=== PATIENT | female | born 1970 | race Caucasian/White ===

== ENCOUNTER 2024-12-19 11:16 | Emergency (ER) | payer MEDICAID, SELFPAY ==
[2024-12-19 11:36] VITALS: BP 157/119; PULSE 92; RESP 20; TEMP 36.7; O2SAT 98
[2024-12-19 11:42] VITALS: BP 157/119; PULSE 92; RESP 20; TEMP 36.7; O2SAT 98
[2024-12-19 12:41] LABS: Abs Immature Grans 0.02 10^3/uL (0.0-0.06); Absolute Basophil Count 0.08 10^3/uL (0.0-0.2); Absolute Eosinophil Count 0.26 10^3/uL (0.0-0.7); Absolute Lymphocyte Count 1.85 10^3/uL (1.2-3.4); Absolute Monocyte Count 0.42 10^3/uL (0.1-0.8); Basophils % 0.8 %; Eosinophils % 2.7 %; HCT 49.2 % (36.0-46.0); HGB 16.4 g/dL (11.2-15.7); Immature Grans % 0.2 %; Lymphocytes % 19.2 %; MCH 33.3 pg (27.0-33.0); MCHC 33.3 % (32.0-36.0); MCV 100 fL (80-95); MPV 8.7 fL (8.0-11.0); Monocytes % 4.4 %; Neutrophils % 72.7 %; Platelet Count 400 10^3/uL (130-400); RBC 4.93 10^6/uL (3.93-5.22); RDW 12.9 % (11.7-14.6); RDW-SD 47.8 fL; WBC 9.63 10^3/uL (4.4-10.8)
[2024-12-19 13:10] LABS: ALT 18 U/L (14-59); AST 27 U/L (15-37); Albumin 4.2 g/dL (3.4-5.0); Alkaline Phosphatase 94 U/L (46-116); Anion Gap 7.2 mmol/L (3-11); BUN 13 mg/dL (7-18); Bilirubin, Total 0.3 mg/dL (0.2-1.0); CO2 31.8 mmol/L (21.0-32.0); Calcium 9.7 mg/dL (8.5-10.1); Chloride 104 mmol/L (98-107); Estimated GFR 66.53 (mL/min/1.73m2); Glucose 92 mg/dL (74-106); Potassium 3.7 mmol/L (3.5-5.1); Sodium 143 mmol/L (136-145); Total Protein 8.4 g/dL (6.4-8.2)
[2024-12-19 13:45] LABS: TSH (W/Ref FT4) 276.77 uIU/mL (0.36-3.74)
[2024-12-19 14:19] VITALS: BP 190/127; PULSE 88; RESP 20; O2SAT 97
[2024-12-19 14:20] VITALS: BP 190/127; PULSE 88; RESP 15; RESP 20; O2SAT 97
--- NOTE | 2024-12-19 17:10 | NUR.NOTE ---
Nursing Note: Received call from patient that her prescription was written for capsules and capsules are not available or approved by her insurance- she usually takes the tablets. called [facility] in [place], [place] and spoke to Pharmacist Simin who will switch them to tablets and get it filled today for the patient
[2024-12-19 22:08] LABS: T4, Free 0.1 ng/dL (0.8-2.2)
--- NOTE | 2024-12-21 15:20 | ED.GENADUL_ITS ---
Discharge Plan Disposition Patient Disposition: Home Condition: Stable Discharge Details Clinical Impression: Hypothyroidism Primary Care Provider: Unknown,Unknown ED Provider: Shalonda Germain Home Meds and New Rx's Prescriptions: New levothyroxine 112 mcg capsule 112 mcg PO DAILY Qty: 60 0RF losartan 25 mg tablet 25 mg PO DAILY Qty: 60 0RF Continued levothyroxine 112 mcg capsule 112 mcg PO DAILY cyclobenzaprine 10 mg tablet 10 mg PO TID losartan 25 mg tablet 25 mg PO DAILY Discharge Instructions Instructions: Hypothyroidism (underactive thyroid) Additional Instructions: Start taking your levothyroxine today and resume your losartan I placed an urgent referral for follow-up with a doctor These return immediately should you have new or worsening complaints Discharge Data Discharge Date/Time-TO BE ENTERED AT DEPARTURE: 12/19/24 14:20 HPI General Date/Time Provider Initiated Documentation: 12/19/24 11:26 . HPI Narrative: The patient is a 54-year-old female with a history of hypertension and hypothyroidism who recently relocated to the area. She presents with concerns that her thyroid function may be abnormal. She reports experiencing fatigue and a sensation of filling up a stand, symptoms she has previously associated with thyroid dysfunction. She contacted her previous physician in [place], but they declined to refill her Synthroid prescription, leaving her without the medication for approximately a month. She also mentions that she has not been taking her losartan. She does not experience any chest pain, shortness of breath, or dizziness. Related Data Home Medications ?Medication ?Instructions ?Recorded ?Confirmed cyclobenzaprine 10 mg tablet 10 mg PO TID 12/19/24 12/19/24 levothyroxine 112 mcg capsule 112 mcg PO DAILY 12/19/24 12/19/24 levothyroxine 112 mcg capsule 112 mcg PO DAILY #60 caps 12/19/24 losartan 25 mg tablet 25 mg PO DAILY 12/19/24 12/19/24 losartan 25 mg tablet 25 mg PO DAILY #60 tabs 12/19/24 Previous Rx's ?Medication ?Instructions ?Recorded levothyroxine 112 mcg capsule 112 mcg PO DAILY #60 caps 12/19/24 losartan 25 mg tablet 25 mg PO DAILY #60 tabs 12/19/24 Allergies Allergy/AdvReac Type Severity Reaction Status Date / Time Penicillins Allergy Intermediate Hives Verified 12/19/24 11:40 General Stated Complaint: GenMedical JACKSON: 4 Exam Narrative Exam Narrative: General Appearance: Patient is alert and oriented, not in acute distress. Vital signs: Blood pressure is markedly elevated at 157/119. HEENT: Pupils are equal, round, and reactive to light and accommodation. No thyromegaly. Respiratory: Lungs are clear to auscultation. Cardiovascular: Cardiac rate and rhythm are regular. No sinus tachycardia. Back, Musculoskeletal: Patient is ambulatory with a steady gait. Skin: Warm and dry, no rash. Neurological: Normal. Course Vital Signs Vital signs: Vital Signs Temperature 36.7 C 12/19/24 11:36 Pulse 92 H 12/19/24 11:36 Respiratory Rate 20 12/19/24 11:36 Blood Pressure 157/119 H 12/19/24 11:36 Pulse Oximetry 98 12/19/24 11:36 Temperature 36.7 C 12/19/24 11:42 Pulse 88 12/19/24 14:20 Respiratory Rate 15 12/19/24 14:20 Blood Pressure 190/127 H 12/19/24 14:20 Blood Pressure Position Sitting 12/19/24 11:42 Pulse Oximetry 97 12/19/24 14:20 Oxygen Delivery Method Room Air 12/19/24 14:19 Oxygen Flow Rate 0 12/19/24 14:19 Lab/Test Results Lab/Test Results: Laboratory Tests Range/Units 12/19/24 12:34 WBC (4.4-10.8) 10^3/uL 9.63 RBC (3.93-5.22) 10^6/uL 4.93 Hgb (11.2-15.7) g/dL 16.4 H Hct (36.0-46.0) % 49.2 H MCV (80-95) fL 100 H MCH (27.0-33.0) pg 33.3 H MCHC (32.0-36.0) % 33.3 RDW (11.7-14.6) % 12.9 Plt Count (130-400) 10^3/uL 400 MPV (8.0-11.0) fL 8.7 Immature Gran % % 0.2 Neutrophils % % 72.7 Lymphocytes % % 19.2 Monocytes % % 4.4 Eosinophils % % 2.7 Basophils % % 0.8 Nucleated RBC % (0.0-0.3) % 0.0 Absolute Neutrophils (1.2-6.7) 10^3/uL 7.00 H Absolute Lymphocytes (1.2-3.4) 10^3/uL 1.85 Absolute Monocytes (0.1-0.8) 10^3/uL 0.42 Absolute Eosinophils (0.0-0.7) 10^3/uL 0.26 Absolute Basophils (0.0-0.2) 10^3/uL 0.08 Sodium (136-145) mmol/L 143 Potassium (3.5-5.1) mmol/L 3.7 Chloride (98-107) mmol/L 104 Carbon Dioxide (21.0-32.0) mmol/L 31.8 Anion Gap (3-11) mmol/L 7.2 BUN (7-18) mg/dL 13 Creatinine (0.55-1.02) mg/dL 1.0 Est GFR (CKD-EPI 2020) (mL/min/1.73m2) 66.53 Glucose (74-106) mg/dL 92 Calcium (8.5-10.1) mg/dL 9.7 Total Bilirubin (0.2-1.0) mg/dL 0.3 AST (15-37) U/L 27 ALT (14-59) U/L 18 Alkaline Phosphatase (46-116) U/L 94 Total Protein (6.4-8.2) g/dL 8.4 H Albumin (3.4-5.0) g/dL 4.2 TSH (0.36-3.74) uIU/mL 276.77 H Free T4 (0.8-2.2) ng/dL 0.1 L Medical Decision Making Laboratory Studies Thyroid level is 276. Free T4 is pending. Initial Assessment: 54-year-old female with history of hypertension and hypothyroidism presents with symptoms suggestive of thyroid dysfunction and elevated blood pressure. Differential Diagnosis: - Hypothyroidism: Reports feeling tired and filling up a stand, similar to previous episodes when her thyroid was off. Thyroid level at 276, free T4 pending. Off Synthroid for approximately a month. Initiated on Synthroid 112 mcg. - Hypertension: Blood pressure markedly elevated at 157/119. Off losartan. Losartan refilled. ED Course: - Thyroid level at 276. - Free T4 pending. - Blood pressure 157/119. - Initiated on Synthroid 112 mcg. - Losartan refilled. - Placed on list for urgent follow-up to establish primary care. Final Assessment: Patient with hypothyroidism and hypertension, both conditions exacerbated by lack of medication. Initiated on Synthroid and losartan, with urgent follow-up arranged. Clinical Impression: - Hypothyroidism - Hypertension Disposition: - Discharge: Patient discharged home in no acute distress. - Follow-Up: Urgent follow-up to establish primary care in the area. MDM Components Evaluation: - Number of Differential Diagnoses or Management Options: Hypothyroidism, Hypertension - Amount and Complexity of Data Reviewed: Thyroid level, blood pressure, medication history - Risk of Complication and Morbidity or Mortality: Elevated due to lack of medication for chronic conditions Quality:SDOH Health Related Social Needs: No Data to Display PFSH All Active Problems (Updated 12/19/24 @ 14:04 by JACLYN Flores) Hypothyroidism (Chronic) Social History Smoking risk assessment performed?: No Drug use: Socially Substance use type: marijuana
== END 2024-12-19 14:20 | disposition home or self-care (01) ==
PROVIDERS: Emergency Provider Physician Assistant
DX: E03.9 Hypothyroidism, unspecified (principal); I10 Essential (primary) hypertension; T38.1X6A Underdosing of thyroid hormones and substitutes, initial encounter; T46.5X6A Underdosing of other antihypertensive drugs, initial encounter; Z91.148 Patient's other noncompliance with medication regimen for other reason
CPT/HCPCS: 80053; 99283; 84439; 84443; 85025

== ENCOUNTER 2025-02-09 03:56 | Outpatient (CLI) | payer MEDICAID, SELFPAY ==
[2025-02-09 10:54] LABS: Anion Gap 7.5 mmol/L (3-11); BUN 13 mg/dL (7-18); CO2 31.5 mmol/L (21.0-32.0); CREATININE 0.8 mg/dL (0.55-1.02); Calcium 9.7 mg/dL (8.5-10.1); Chloride 106 mmol/L (98-107); Estimated GFR 86.96 (mL/min/1.73m2); Glucose 94 mg/dL (74-106); Sodium 145 mmol/L (136-145); TSH (W/Ref FT4) 0.29 uIU/mL (0.36-3.74)
[2025-02-09 11:10] LABS: FREE T4 1.35 ng/dL (0.76-1.46)
== END 2025-02-09 03:57 | disposition home or self-care (01) ==
LOC: LBO 03:57
PROVIDERS: Referring Provider Nurse Practitioner Family; Visit Provider Nurse Practitioner Family
DX: E03.9 Hypothyroidism, unspecified (principal); I10 Essential (primary) hypertension
CPT/HCPCS: 36415; 80048; 84439; 84443

== ENCOUNTER 2025-02-17 11:23 | Outpatient (REF) | payer MEDICAID, SELFPAY ==
[2025-02-17 18:37] LABS: COMMENT (LAB VIEW ONLY) 24.16 mg/dL; Microalb ug/mg Crea 49.3 ug/mg Cr
== END 2025-02-17 11:24 | disposition home or self-care (01) ==
LOC: LBN 11:23
PROVIDERS: Visit Provider Nurse Practitioner Family
DX: I10 Essential (primary) hypertension (principal)
CPT/HCPCS: 82043; 82570

== ENCOUNTER 2025-04-10 02:13 | Outpatient (CLI) | payer MEDICAID, SELFPAY ==
[2025-04-10 15:57] LABS: TSH (W/Ref FT4) 2.96 uIU/mL (0.36-3.74)
== END 2025-04-10 02:14 | disposition home or self-care (01) ==
LOC: LBO 02:13
PROVIDERS: PCP Nurse Practitioner Family; Referring Provider Nurse Practitioner Family; Visit Provider Nurse Practitioner Family
DX: E03.9 Hypothyroidism, unspecified (principal)
CPT/HCPCS: 36415; 84443

== ENCOUNTER 2025-09-27 07:26 | Observation (INO) | payer MEDICAID, SELFPAY ==
[2025-09-27] VITALS (72 sets, daily range): BP systolic 104–151; BP diastolic 63–100; PULSE 66–95; RESP 12–28; TEMP 36–37; O2SAT 88–97; BMI 29.7
[2025-09-27 07:51] LABS: Abs Immature Grans 0.07 10^3/uL (0.0-0.06); HCT 40.1 % (36.0-46.0); HGB 13.5 g/dL (11.2-15.7); Immature Grans % 0.5 %; MCH 34.1 pg (27.0-33.0); MCHC 33.7 % (32.0-36.0); MCV 101 fL (80-95); MPV 9.3 fL (8.0-11.0); Platelet Count 318 10^3/uL (130-400); RBC 3.96 10^6/uL (3.93-5.22); RDW 12.4 % (11.7-14.6); RDW-SD 46.6 fL; WBC 14.73 10^3/uL (4.4-10.8)
[2025-09-27 08:17] LABS: Lipase 38 U/L (<53); Magnesium 1.6 mg/dL (1.6-2.6)
[2025-09-27 08:19] LABS: ALT 31 U/L (10-49); AST 73 U/L (<34); Albumin 4.3 g/dL (3.2-5.0); Alkaline Phosphatase 94 U/L (46-116); Anion Gap 8.3 mmol/L (3-11); BUN 11 mg/dL (9-23); Bilirubin, Total 0.4 mg/dL (0.2-1.2); CO2 27.7 mmol/L (20.0-31.0); Calcium 9.4 mg/dL (8.3-10.6); Chloride 105 mmol/L (98-107); Glucose 117 mg/dL (74-106); Potassium 3.9 mmol/L (3.5-5.1); Sodium 141 mmol/L (136-145); Total Protein 7.2 g/dL (5.7-8.2)
[2025-09-27] MEDS: HYDROmorphone 2 MG/ML SYR 1 MG IVP (08:21)
[2025-09-27 08:25] LABS: Troponin I < 3 ng/L (<35)
[2025-09-27 08:38] LABS: Glucose Negative (Negative)
[2025-09-27 08:50] LABS: C & S Indicated? No
--- NOTE | 2025-09-27 08:50 | ED.GENADUL_ITS ---
Discharge Plan Disposition Patient Disposition: Admit to [facility] Condition: Serious Discharge Details Clinical Impression: Acute cholecystitis Admit Date/Time: 09/27/25 10:48 Admit Provider: Rosmery Mathew Attending Provider: Rosmery Mathew Primary Care Provider: Agnes Dan ED Provider: Sanjeev Guzman Discharge Data Discharge Date/Time-TO BE ENTERED AT DEPARTURE: 09/27/25 15:10 HPI General Mode of arrival: ambulatory . Date/Time Provider Initiated Documentation: 09/27/25 07:43 . Limitations to Documentation: no limitations . Information obtained by: patient . HPI Narrative: 55-year-old female presents with abdominal pain. Pain localized to the right up per quadrant. Patient notes pain started around 2 AM and woke her up from sleep. Pain severe. She has had similar less severe brief episodes of pain in the area in the past. She has some associated nausea. No vomiting. No fever. Related Data Home Medications ?Medication ?Instructions ?Recorded ?Confirmed levothyroxine 100 mcg tablet 100 mcg PO DAILY #90 tabs 02/15/25 09/27/25 losartan 50 mg tablet 50 mg PO DAILY #90 tabs 07/0609/27/25 cyclobenzaprine 10 mg tablet 10 mg PO TID PRN muscle s pasm #30 05/03/25 09/27/25 tabs oxycodone-acetaminophen 5 mg-325 1 tab PO Q6H PRN #10 tabs 25 mg tablet (Percocet) Previous Rx's ?Medication ?Instructions ?Recorded levothyroxine 100 mcg tablet 100 mcg PO DAILY #90 tabs 02/15/25 losartan 50 mg tablet 50 mg PO DAILY #90 tabs 07/06 cyclobenzaprine 10 mg tablet 10 mg PO TID PRN muscle s pasm #30 05/03/25 tabs oxycodone-acetaminophen 5 mg-325 1 tab PO Q6H PRN #10 tabs 25 mg tablet (Percocet) Allergies Allergy/AdvReac Type Severity Reaction Status Date / Time Penicillins Allergy Intermediate Hives Verified 09/27/25 07:42 General Stated Complaint: Abd Prob JACKSON: 3 Exam Const General: cooperative and no acute distress HENMT Mouth: mucous membranes dry Eyes Conjunctivae: normal conjunctivae Sclera: normal sclerae Neck Neck: trachea midline and supple Resp Auscultation: clear to auscultation bilaterally, no rales, no rhonchi and no wheezes Cardio Rate: regular rate and not tachycardic Rhythm: regular rhythm Heart Sounds: no murmurs GI Palpation: soft, not firm, no guarding, no masses, not rigid and tender in the RUQ Skin General skin exam: no rashes or lesions noted Neuro General: patient alert, patient awake, patient oriented x3 and tone normal Extrem General: no edema Psych Appearance: grossly normal Mental Status: mental status grossly normal Speech and Movement: speech and movement normal Course Vital Signs Vital signs: Vital Signs Temperature 36 C L 09/27/25 07:32 Pulse 66 09/27/25 07:32 Respiratory Rate 17 09/27/25 07:32 Blood Pressure 115/81 09/27/25 07:32 Pulse Oximetry 95 09/27/25 07:32 Temperature 36 C L 09/27/25 07:38 Temperature Source Tympanic 09/27/25 07:38 Pulse 66 09/27/25 07:38 Respiratory Rate 17 09/27/25 07:38 Blood Pressure 115/81 09/27/25 07:38 Blood Pressure Position Supine 09/27/25 07:38 Pulse Oximetry 95 09/27/25 07:38 Oxygen Delivery Method Room Air 09/27/25 07:38 Oxygen Flow Rate 0 09/27/25 07:38 Lab/Test Results Lab/Test Results: Laboratory Tests Range/Units 09/27/25 09/27/25 07:32 08:30 WBC (4.4-10.8) 10^3/uL 14.73 H RBC (3.93-5.22) 10^6/uL 3.96 Hgb (11.2-15.7) g/dL 13.5 Hct (36.0-46.0) % 40.1 MCV (80-95) fL 101 H MCH (27.0-33.0) pg 34.1 H MCHC (32.0-36.0) % 33.7 RDW (11.7-14.6) % 12.4 Plt Count (130-400) 10^3/uL 318 MPV (8.0-11.0) fL 9.3 Immature Gran % % 0.5 Neutrophils % % 78.9 Lymphocytes % % 13.2 Monocytes % % 6.1 Eosinophils % % 0.8 Basophils % % 0.5 Nucleated RBC % (0.0-0.3) % 0.0 Absolute Neutrophils (1.2-6.7) 10^3/uL 11.62 H Absolute Lymphocytes (1.2-3.4) 10^3/uL 1.94 Absolute Monocytes (0.1-0.8) 10^3/uL 0.90 H Absolute Eosinophils (0.0-0.7) 10^3/uL 0.12 Absolute Basophils (0.0-0.2) 10^3/uL 0.07 Sodium (136-145) mmol/L 141 Potassium (3.5-5.1) mmol/L 3.9 Chloride (98-107) mmol/L 105 Carbon Dioxide (20.0-31.0) mmol/L 27.7 Anion Gap (3-11) mmol/L 8.3 BUN (9-23) mg/dL 11 Creatinine (0.55-1.02) mg/dL 0.97 Est GFR (CKD-EPI 2020) (mL/min/1.73m2) 59.36 Glucose (74-106) mg/dL 117 H Calcium (8.3-10.6) mg/dL 9.4 Magnesium (1.6-2.6) mg/dL 1.6 Total Bilirubin (0.2-1.2) mg/dL 0.4 AST (<34) U/L 73 H ALT (10-49) U/L 31 Alkaline Phosphatase (46-116) U/L 94 Troponin I (<35) ng/L < 3 Total Protein (5.7-8.2) g/dL 7.2 Albumin (3.2-5.0) g/dL 4.3 Lipase (<53) U/L 38 Urine Color (Yellow) Yellow Urine Clarity (Clear) Sl Cloudy Urine pH (5-8) 5.0 Ur Specific [place] (1.005-1.025) >= 1.030 H Urine Protein (Neg-Trace) mg/dL Trace Urine Ketones (Negative) mg/dL Negative Urine Blood (Negative) Moderate H Urine Nitrite (Negative) Negative Urine Bilirubin (Negative) Small H Urine Urobilinogen (Up to 0.2) mg/dL 2.0 H Ur Leukocyte Esterase (Negative) Negative Urine Glucose (Negative) mg/dL Negative Medical Decision Making 900--55-year-old female here with severe right upper quadrant pain that started around 2 AM and has persisted. Patient tender in her right upper quadrant. Hemodynamically stable and afebrile. High concern for acute cholecystitis. POCUS performed and cholelithiasis identified. Plan to obtain formal ultrasound. Diagnostic labs reviewed: Leukocytosis noted. Lipase normal. AST elevated at 73. I consulted Dr. Mathew, on-call general surgeon, discussed ED presentation course. 1045 --I spoke with Dr. Mathew, she will admit the patient with plan for OR later today. She recommends ceftriaxone and Flagyl IV. Lab Data Lab results reviewed: Yes I reviewed the patient's lab results. PFSH All Active Problems (Updated 09/29/25 @ 00:02 by ARIANA EDGE) Vertigo (Acute) Hypertension (Chronic) Medical History (Updated 09/29/25 @ 00:02 by ARIANA EDGE) Hypothyroid Social History Smoking/Tobacco Use Status: Current-Occasional Tobacco Type: cigarettes Smoking risk assessment performed?: Yes Alcohol Intake: current Alcohol Intake frequency: holidays/special occasions only Alcohol type: hard liquor Drug use: Socially Substance use type: marijuana Housing: house POCUS Exam (ED) Limited Gallbladder Exam DATE OF EXAM: 09/27/25 TIME OF EXAM: 08:00 PROVIDER THAT PERFORMED THE STUDY: Sanjeev Guzman IS THIS A REPEAT EXAM DURING THIS ENCOUNTER: No REASON FOR VISIT: Abdominal pain VISUALIZED STRUCTURES: Gallbladder PERTINENT FINDINGS/IMPRESSION: Cholelithiasis DIFFERENTIAL DIAGNOSIS: Cholelithiasis, acute cholecystitis Exam complete
--- NOTE | 2025-09-27 09:09 | DI.US_ITS ---
Exam(s) US ABDOMEN LIMITED EXAM: US ABDOMEN LIMITED CLINICAL HISTORY: ruq pain TECHNIQUE: Ultrasound abdomen performed using standard protocol. COMPARISON: No exams were available for comparison FINDINGS: LIVER: Normal size and echogenicity. No focal liver lesions are seen. GALLBLADDER: The gallbladder appears distended and shows multiple stones as well as mild wall thickening. No pericholecystic fluid identified. ROJAS'S SIGN: Negative however the patient received pain medication. BILIARY SYSTEM: Common bile duct is mildly dilated at 7 millimeters. No common duct stones are visible. Right KIDNEY: The right kidney is normal in size. No evidence of renal calculi. No evidence of hydronephrosis. No renal mass or cyst identified. PANCREAS: Normal where visualized. ABDOMINAL AORTA AND IVC: Visualized portions normal caliber. ASCITES: None seen. IMPRESSION: Cholelithiasis. The gallbladder has a distended appearance and shows mild wall thickening, suspicious for early acute cholecystitis. Findings called to Dr. Guzman of the emergency department. DATA REPOSITORY:
[2025-09-27] MEDS: Lactated Ringers 1,000 ML 1000 ML IV (09:24)
--- NOTE | 2025-09-27 10:48 | W.PM.HP.N ---
Date of service: 09/27/25 Time of Service: 13:22 Assessment and Plan Assessment and plan (1) Acute cholecystitis: Status: Acute Assessment and plan: Patient is a 55-year-old female who presented to the emergency department with acute onset right upper quadrant pain, nausea, vomiting. She notes that the pain woke her from her sleep. She does endorse previous history of similar episodes that self subsided. She otherwise has a medical history of hypertension and a hysterectomy. On presentation the ED she was hemodynamically stable and afebrile. Her abdomen is soft, nondistended, and right upper quadrant tenderness to palpation. She had labs which were significant for an elevated white count. She also had a right upper quadrant ultrasound showing a thickened gallbladder wall with concern for early acute cholecystitis. The finding of acute cholecystitis was discussed with her in the emergency department. Given these findings the recommendation was made to undergo a cholecystectomy. The procedure as well as the recovery was discussed with her. The risks and benefits were discussed prior to the procedure and consent was obtained. Will admit following procedure for pain control postoperatively and advancement of diet. History of Present Illness Narrative: Patient is a 55-year-old female with past medical history of hypertension who presents to the emergency department with acute onset right upper quadrant pain. She reports experiencing excruciating right upper quadrant pain accompanied by nausea and vomiting which disrupted her sleep last night. She has had intermittent episodes of mild right upper quadrant pain over the past 4 to 5 months, but these were largely disregarded as they typically resolve spontaneously. She reports no associated fevers or chills. The pain has shown some improvement following medication administration in the emergency department. She does not take any blood thinners at home. She does not report any unusual dietary intake prior to the onset of symptoms. She last ate at 1030 yesterday evening. She notes that a similar episode of prior pain was after following coffee. She has a past medical history of hypothyroidism, vertigo, and muscle spasms. She is currently on antihypertensive medication. She has a prior laparoscopic hysterectomy . She has no prior history of complications with anesthesia. Review of Systems Constitutional Constitutional: Denies chills and Denies fever(s) Cardiovascular Cardiovascular: Denies chest pain and Denies dyspnea Respiratory Respiratory: Denies dyspnea Genitourinary Genitourinary: Denies dysuria PFSH All Active Problems (Updated 09/27/25 @ 10:50 by Sanjeev Guzman MD) Acute cholecystitis (Acute) Vertigo (Acute) Hypertension (Chronic) Medical History (Updated 09/27/25 @ 10:50 by Sanjeev Guzman MD) Hypothyroid Social History Smoking/Tobacco Use Status: Current-Occasional Tobacco Type: cigarettes Smoking risk assessment performed?: Yes Alcohol Intake: current Alcohol Intake frequency: holidays/special occasions only Alcohol type: hard liquor Drug use: Socially Substance use type: marijuana Meds Allergies and Home Medications Allergies Allergy/AdvReac Type Severity Reaction Status Date / Time Penicillins Allergy Intermediate Hives Verified 09/27/25 07:42 Home Medications ?Medication ?Instructions ?Recorded ?Confirmed ?Type levothyroxine 100 mcg tablet 100 mcg PO DAILY #90 tabs 02/15/25 09/27/25 Rx losartan 50 mg tablet 50 mg PO DAILY #90 tabs 04/19/25 09/27/25 Rx cyclobenzaprine 10 mg tablet 10 mg PO TID PRN muscle spasm #30 05/03/25 09/27/25 Rx tabs Exam Narrative Exam Narrative: General: no acute distress. Skin: Good turgor, no visible rashes or lesion HEENT: Normocephalic, atraumatic CV: Regular rate and rhythm Lungs: Bilateral equal chest rise, non-labored breathing Abdomen: Soft, right upper quadrant tenderness to palpation, non-distended, no rebound or guarding Extremities: Warm, well perfused Neurologic: No focal deficits Psychiatric: Alert and oriented, normal mood and affect Results Labs 09/27/25 07:32 09/27/25 07:32 Labs: Laboratory Results - last 24 hr 09/27/25 09/27/25 07:32 08:30 WBC 14.73 H RBC 3.96 Hgb 13.5 Hct 40.1 MCV 101 H MCH 34.1 H MCHC 33.7 RDW 12.4 Plt Count 318 MPV 9.3 Immature Gran % 0.5 Neutrophils % 78.9 Lymphocytes % 13.2 Monocytes % 6.1 Eosinophils % 0.8 Basophils % 0.5 Nucleated RBC % 0.0 Absolute Neutrophils 11.62 H Absolute Lymphocytes 1.94 Absolute Monocytes 0.90 H Absolute Eosinophils 0.12 Absolute Basophils 0.07 Sodium 141 Potassium 3.9 Chloride 105 Carbon Dioxide 27.7 Anion Gap 8.3 BUN 11 Creatinine 0.97 Est GFR (CKD-EPI 2020) 59.36 Glucose 117 H Calcium 9.4 Magnesium 1.6 Total Bilirubin 0.4 AST 73 H ALT 31 Alkaline Phosphatase 94 Troponin I < 3 Total Protein 7.2 Albumin 4.3 Lipase 38 Urine Color Yellow Urine Clarity Sl Cloudy Urine pH 5.0 Ur Specific [place] >= 1.030 H Urine Protein Trace Urine Ketones Negative Urine Blood Moderate H Urine Nitrite Negative Urine Bilirubin Small H Urine Urobilinogen 2.0 H Ur Leukocyte Esterase Negative Urine RBC 5-10 H Urine WBC 3-5 Ur Epithelial Cells Few Urine Crystals Negative Urine Bacteria Few Urine Casts Negative Urine Mucus Negative Ur Culture Indicated? No Urine Glucose Negative Last Vital Signs Temp 36 C L 09/27/25 07:38 Pulse 78 09/27/25 10:20 Resp 16 09/27/25 09:20 BP 121/80 09/27/25 09:16 Pulse Ox 91 L 09/27/25 10:20 VTE Prohylaxis Risk Level: Low Risk Contraindications: Other (Upcoming procedure) Prophylaxis: Patient ambulatory Time Spent Time spent with Patient: <40 minutes Time was spent: preparing to see the patient(eg.review tests), obtaining and/or reviewing separately otained hiistory, indepentently interpreting results and counseling the patient
[2025-09-27] MEDS: cefTRIAXone 2 GM/50 ML BAG IVPB (11:03)
[2025-09-27] MEDS: metroNIDAZOLE 500 MG/100 ML BAG 100 MG IVPB (11:05)
--- NOTE | 2025-09-27 13:28 | ANES.PREOP_ITS ---
General Info Date of Service Date Performed: 09/27/25 Height: 5 ft 3 in Weight: 76.204 kg Body Mass Index (BMI): 29.7 Surgical Procedure: Operation Date: 09/27/25 14:55 Proposed Procedure Side Surgeon p Cholecystectomy Laparoscopic Rosmery Mathew MD Meds Allergies and Home Medications Allergies Allergy/AdvReac Type Severity Reaction Status Date / Time Penicillins Allergy Intermediate Hives Verified 09/27/25 07:42 Home Medication ?Medication ?Instructions ?Recorded levothyroxine 100 mcg tablet 100 mcg PO DAILY #90 tabs 02/15/25 losartan 50 mg tablet 50 mg PO DAILY #90 tabs 07/06 cyclobenzaprine 10 mg tablet 10 mg PO TID PRN muscle s pasm #30 05/03/25 tabs Current Visit Medications: Current Medications Generic Name Dose Route Start Last Admin Trade Name Freq PRN Reason Stop Dose Admin Hydromorphone HCl 0.25 mg 09/27/25 10:48 Hydromorphone 2 Mg/Ml Syr IVP Q6H PRN PRN Sodium Chloride 1,000 mls @ 125 mls/hr 09/27/25 11:00 Saline 1000ml Bag IV INFUSION JORGE Ondansetron HCl 4 mg 09/27/25 10:48 Ondansetron 4 Mg/2 Ml Vial IVP Q4H PRN PRN Sodium Chloride 0 ml 09/27/25 07:44 Normal Saline Flush 10 Ml Syr IVP PRN PRN Sodium Chloride 0 ml 09/27/25 08:30 09/27/25 13:04 Normal Saline Flush 10 Ml Syr IVP Not Given BID JORGE Sodium Chloride 0 ml 09/27/25 07:44 Normal Saline 10 Ml Vial IJ DIRECTED PRN Sodium Chloride 0 ml 09/27/25 10:48 Normal Saline Flush 10 Ml Syr IVP PRN PRN Sodium Chloride 0 ml 09/27/25 20:00 Normal Saline Flush 10 Ml Syr IVP BID JORGE Sodium Chloride 0 ml 09/27/25 10:48 Normal Saline 10 Ml Vial IJ DIRECTED PRN PFSH Active Problems Active Problems: Problem Status Onset Code Acute cholecystitis Acute K81.0 Vertigo Acute R42 Hypertension Chronic I10 Medical History Medical History (Updated 09/27/25 @ 10:50 by Sanjeev Guzman MD) Hypothyroid Tobacco Smoking/Tobacco Use Status: Current-Occasional Tobacco Type: cigarettes Alcohol Alcohol Intake: current Alcohol intake frequency: holidays/special occasions only Alcohol type: hard liquor Substance Use Substance use: Socially Substance use type: marijuana Vital Signs and Lab Results Vital Signs Most Recent Vital Signs in EMR: Most Recent Vital Signs Temp Pulse Resp BP Pulse Ox 36 C L 76 14 131/80 91 L 09/27/25 07:38 09/27/25 13:15 09/27/25 13:15 09/27/25 13:15 09/27/25 13:15 Lab Results 09/27/25 07:32 09/27/25 07:32 Complete Blood Count: 2 WBC, (4.4-10.8) 14.73 10^3/uL H Today, 07:32 RBC, (3.93-5.22) 3.96 10^6/uL Today, 07:32 Hgb, (11.2-15.7) 13.5 g/dL Today, 07:32 Hct, (36.0-46.0) 40.1 % Today, 07:32 Plt Count, (130-400) 318 10^3/uL Today, 07:32 Complete Metabolic Panel: 2 Sodium, (136-145) 141 mmol/L Today, 07:32 Potassium, (3.5-5.1) 3.9 mmol/L Today, 07:32 Chloride, (98-107) 105 mmol/L Today, 07:32 Carbon Dioxide, (20.0-31.0) 27.7 mmol/L Today, 07:32 BUN, (9-23) 11 mg/dL Today, 07:32 Creatinine, (0.55-1.02) 0.97 mg/dL Today, 07:32 Est GFR (CKD-EPI 2020), (mL/min/1.73m2) 59.36 Today, 07:32 Magnesium, (1.6-2.6) 1.6 mg/dL Today, 07:32 Calcium, (8.3-10.6) 9.4 mg/dL Today, 07:32 Albumin, (3.2-5.0) 4.3 g/dL Today, 07:32 Glucose, (74-106) 117 mg/dL H Today, 07:32 Liver Function Panel: 2 ALT, (10-49) 31 U/L Today, 07:32 AST, (<34) 73 U/L H Today, 07:32 Cardiac Panel: 2 Troponin I, (<35) < 3 ng/L Today Pancreas Panel: 2 Lipase, (<53) 38 U/L Today, 07:32 Anesthesia Assessment and Plan Anesthesia History Personal History: No History of Anesthesia Complications Family History: No Family History of Anesthesia Complications Exercise Tolerance Exercise Tolerance: Metabolic Equivalents>4 Pertinent Negatives Pertinent Negatives: No Symptoms of GERD (Recent history of heartburn (untreated) but no reflux.) Cardiac & Pulmonary Exam Cardiac Exam: Normal S1/S2 Heart Sounds Pulmonary Exam: Clear Bilateral Breath Sounds Implantable Cardiac Device Does patient have a Pacemaker or an ICD?: No Airway Exam Known Difficult Airway: No Mallampati Class: 2 Mouth Opening: Normal (> 3cm) Thyromental Distance: Greater than 3 cm Neck Range of Motion: Full ROM Neck Circumference: Normal Teeth Condition: Normal Dentition ASA Classification ASA Score: ASA 2 Emergency Case?: Yes NPO Status NPO Status: NPO Clears >2 hours, Solids >8 hours Anesthesia Plan Resuscitation Status: Full Code Anesthesia Technique: General Anesthesia Airway Planned: Endotracheal Tube Monitors Used: Standard Monitors and SedLine Preoperative Comments:: Hypertension (Rx: Losartan, none today). Hypothyroid (treated). History of hysterectomy. No anesthesia problems previously. NPO since last pm.
[2025-09-27] MEDS: Lactated Ringers 1,000 ML 30 ML IV ×2 (15:33→18:37)
[2025-09-27] MEDS: ceFAZolin 2 GM/50 ML BAG 100 GM (15:50)
[2025-09-27] MEDS: Bupivacaine 0.25% Pres-Free W/EPI 30 ML VIAL (16:16)
--- NOTE | 2025-09-27 17:05 | GB_PTH ---
PATIENT: Sarina Guerreor LOC: U#:[id number] AGE/SX: 55/F ROOM: [facility] RE09/27/[address]: Rosmery Mathew : 1970 BED: A DIS: 09/28/2025 SPEC #: [id number] RECD: 09/28/25 12:58 STATUS: NORMA REQ #: [id number] ARPITA: 09/27/25 17:[address]: Rosmery Mathew DEPT: Surgical Specimen RECD BY: Shalonda Ospina ENTERED: 09/28/25 12:58 SP TYPE: GB OTHR DR: Agnes Dan APRN Tissues: 1 - GALLBLADDER Procedures: GROSS AND MICRO LEVEL 3 Comments: [id number]
--- NOTE | 2025-09-27 17:17 | ROE_ITS ---
Operative Note Operative Note PRE-OP DIAGNOSIS: Acute cholecystitis POST-OP DIAGNOSIS: same PROCEDURE: Laparoscopic cholecystectomy SURGEON: Rosmery Mathew CORPORATE RECYCLING MANAGER: Kwadwo Stearns ANESTHESIA TYPE: Local By Surgeon and General LMA/ETT Refer to Anesthesia Record ESTIMATED BLOOD LOSS: 20 PATHOLOGY: other (Gallbladder and contents ) COMPLICATIONS: None Patient was transported to: PACU Patient's condition: stable Indications: Patient is a 55-year-old female who presented to the emergency department with acute onset right upper quadrant pain, nausea, vomiting. She does endorse previous history of similar episodes that self subsided. She otherwise has a medical history of hypertension and a hysterectomy. On presentation the ED she was hemodynamically stable and afebrile. Her abdomen is soft, nondistended, and right upper quadrant tenderness to palpation. She had labs which were significant for an elevated white blood cell count. She also had a right upper quadrant ultrasound showing a thickened gallbladder wall with concern for early acute cholecystitis. The finding of acute cholecystitis was discussed with her in the emergency department. Given these findings the recommendation was made to undergo a cholecystectomy. The procedure as well as the recovery was discussed with her. The risks and benefits were discussed prior to the procedure and consent was obtained. Findings: Edematous, acute inflamed gallbladder. Dissection performed to identify anatomy. Cystic duct and artery clipped and transected. Gallbladder removed from fossa. Procedure Description: After induction of anesthesia the patient was then prepped and draped in sterile fashion. ?Prior to incision, an additional timeout was performed, which again confirmed the patient's name, date of , and the procedure to be performed, and antibiotics were given within an hour of incision. A?horizontal, 5 mm incision was made just superior to the umbilicus. The umbilical stalk was isolated using blunt dissection, and was then grasped and elevated with a penetrating towel clamp. A Veress needle was used to gain entry to the abdominal cavity and the abdomen was insufflated to 15 mmHg without incident. A 5 mm Optiview port was then placed under direct visualization. The abdomen was inspected with the laparoscope and there was no evidence of bowel injury or bleeding. After insufflation was obtained, a 10 mm subxiphoid trocar was placed under lap visualization, along with two additional 5-mm right subcostal trocars. The gallbladder was noted to be edematous consistent with the diagnosis of early acute cholecystitis. Next, the body of the gallbladder was grasped with a fenestrated grasper and elevated over the dome of the liver. An additional grasper was then used to grasp the infundibulum of the gallbladder in order to expose Calot's triangle. Dissection proceeded along the lateral edge using disse ctors. Dissection was performed to identify anatomy. Once the cystic duct and gallbladder neck confluence were clearly identified, we proceeded to further dissect the cystic duct from the peritoneal attachments. With the cystic duct clearly identified and then reconfirmed, two clips were placed on the caudal side of the cystic duct, and one placed on the gallbladder side of the cystic duct. The cystic duct was then transected. The cystic artery was also identified during this dissection and two titanium clips were placed on the caudal side. Next, the gallbladder was dissected from the gallbladder fossa in inferior to superior fashion using the Bovie hook cautery. Hemostasis was obtained using the Bovie hook cautery. Prior to removal of the gallbladder from the gallbladder fossa, all clips were inspected and found to be in good position. The gallbladder was then placed in an EndoCatch bag and removed from the peritoneal cavity through a 10 mm subxiphoid trocar. Next, the blunt grasper was introduced to facilitate exposure of the gallbladder fossa, which was then irrigated copiously with sterile normal saline and suctioned until return was free of blood or bile. Trocars were removed under laparoscopic visualization. The 10 mm subxiphoid trocar was closed with an interrupted 0 Vicryl suture. The skin was then reapproximated using 4-0 Monocryl in a running subcuticular fashion. Local anesthesia was injected into the incisions and the incisions were covered with Dermabond. The patient tolerated the procedure well. All needles, instruments, and lap pads were accounted for. The patient was extubated in the operating room and sent to PACU in good condition. Date of Procedure: 09/27/25
--- NOTE | 2025-09-27 17:17 | BRIEFOP_ITS ---
Date of service: 09/27/25 Time of Service: 17:18 Brief Operative Note Procedure/Pre & Post Op Diagnoses/Hull And Deck Remover: Operation Date: 09/27/25 14:55 Actual Procedures Cholecystectomy Laparoscopic- Rosmery Mathew MD Pre-Op Diagnosis: Acute cholecystitis Post-Op Diagnosis: Acute cholecystitis Case Staff Physician Hull And Deck Remover: Kwadwo Stearns Anesthesia Anesthesia Type: General LMA/ETT Estimated Blood Loss Output, Estimated Blood Loss 20 Amount Specimen/Culture Specimen(s): GALLBLADDER Complications Complications: None Additional Procedure Notes Note: - Advance diet as tolerated - Pain control as written - Likely discharge home tomorrow
--- NOTE | 2025-09-27 17:37 | W.ANESPOSTOP ---
Postoperative Evaluation Date, Time and Location Date Performed: 09/27/25 Time Performed: 17:37 Patient Location: PACU Vital Signs Most Recent Imported Vital Signs: Most Recent Vital Signs Temp Pulse Resp BP Pulse Ox 36.5 C 89 16 107/77 91 L 09/27/25 17:27 09/27/25 17:35 09/27/25 17:35 09/27/25 17:35 09/27/25 17:35 Assessment Mental Status: Arousable with meaningful communication Airway and Respiratory Function: Abnormal Respiratory exam (See explanation) (wheezes and coughing, is appropriate at this time working with incentive spirometer. ) Cardiovascular Function: Hemodynamically Stable Hydration Status: Adequately Hydrated Nausea & Vomiting: No Nausea or Vomiting Pain: Pt. Denies Any Pain Peripheral Nerve Block: Patient did not receive a nerve block
[2025-09-27] MEDS: Acetaminophen 500 MG TAB 1000 MG PO (18:36)
[2025-09-27] MEDS: oxyCODONE 5 MG TAB PO (18:36)
[2025-09-27] MEDS: HYDROmorphone 2 MG/ML SYR 0.25 MG IVP (21:21)
[2025-09-27] MEDS: Normal Saline Flush 10 ML SYR IVP (21:24)
[2025-09-28 06:10] VITALS: BP 149/96; PULSE 94; RESP 18; TEMP 37.2; O2SAT 91
[2025-09-28] MEDS: oxyCODONE 5 MG TAB PO (06:45)
--- NOTE | 2025-09-28 10:13 | W.PM.DSUDISC ---
Date of service: 09/28/25 Discharge Plan Disposition Patient Disposition: Home Condition: Stable Discharge Details Reason For Visit: Acute Cholecystitis Admit Date/Time: 09/27/25 10:48 Admit Provider: Rosmery Mathew Attending Provider: Rosmery Mathew Primary Care Provider: Agnes Dan Hospital Course Hospital Course: 55yo F who had acute cholecystitis dianosed at an ED visit. Cholecystectomy was indicated. She was taken to surgery where laparoscopic cholecystectomy was performed without complication. Home Meds and New Rx's Prescriptions: New oxycodone-acetaminophen [Percocet] 5-325 mg tablet 1 tab PO Q6H PRNQty: 10 0RF Continued losartan 50 mg tablet 50 mg PO DAILY Qty: 90 3RF levothyroxine 100 mcg tablet 100 mcg PO DAILY Qty: 90 2RF cyclobenzaprine 10 mg tablet 10 mg PO TID PRN (Reason: muscle spasm) Qty: 30 0RF Discharge Instructions Additional Instructions: Shower on 09/29/25. Wash gently over surgery sites with soapy hands, rinse, pat dry. Don't peel strips or glue, and dont submerge them under water (no bathtub etc). Ok to walk, climb stairs, and resume normal activities of daily living. Do not lift/push/pull more than 20lb for 4 weeks. Diet as tolerated, allow your body to naturally make adjustments in the bile flow after surgery. Eat your normal diet. Loose stools may occur. We will discuss them at follow up if still present in 2 weeks. Call or return for fever or incisional problems. FOLLOW UP IN OFFICE - SCHEDULED FOR 10/16/2025 at 8:00AM Stand Alone Forms: Portal Information Referrals: Rosmery Mathew MD [ [facility] STAFF PHYSICIAN, Surgery] Activity:: as written in notes Equipment/Supplies:: No Equipment Needed Diet:: As Tolerated DS: Diagnosis Discharge Diagnosis (1) Acute cholecystitis: Status: Acute
--- NOTE | 2025-09-28 12:16 | PDOC.CMDIS ---
Date of service: 09/28/25 Time of Service: 12:16 LACE Index Scoring Tool Questions: Length of Stay (in days): 1 Was the patient admitted via the E.D.?: Yes E.D. Visits: 1 Answers: Total Score: 5 Risk of Readmission: Low Risk Care Management Discharge Plan Reason for Hospitalization: Acute Cholecystitis Discharge Plan: Sarina will be discharged home today with no new services. It is recommended she follow up with her community providers, surgical team, and discharge plan of care. She will transport home via private vehicle by her fianc?. Patient/Family Education Needs: Review the discharge instruction, activity, limitations, and plan of care. Discuss ask me three.
== END 2025-09-28 12:59 | disposition home or self-care (01) ==
LOC: ER 10:50 → MS 09-28 03:37 → ER 09-28 03:39 → DSU 09-28 03:39 → MS 09-28 03:39
PROVIDERS: Admitting Provider Student in an Organized Health Care Education/Training Program; Emergency Provider Student in an Organized Health Care Education/Training Program; PCP Nurse Practitioner Family; Visit Provider Student in an Organized Health Care Education/Training Program
PROC: 0FT44ZZ Resection of Gallbladder, Percutaneous Endoscopic Approach (ICD-10-PCS; CPT 47562; principal; 2025-09-27 14:45)
DX: K80.12 Calculus of gallbladder with acute and chronic cholecystitis without obstruction (principal); I10 Essential (primary) hypertension; E03.9 Hypothyroidism, unspecified; F17.210 Nicotine dependence, cigarettes, uncomplicated
CPT/HCPCS: 47562; 36415; 76705; 80053; 83690; 96361; 96365; 96366; 96367; 96375; 99285; 81003; 81015; 83735; 84484; 85025; 88304; G0378; J0131; J0690; J0696; J1100; J1171; J1836; J1885; J2003; J2250; J2371; J2405; J2704; J3010; J3475